=== PATIENT | male | born 1980 | race Caucasian/White ===

== ENCOUNTER 2017-04-16 10:18 | Inpatient (IN) ==
--- NOTE | 2017-04-16 10:31 | Emergency Department Note ---
Disposition Clinical Impression: Cellulitis, Rash, Transaminitis, Hyperbilirubinemia, IVDU (intravenous drug user) Disposition: Admitted As Inpatient Condition: Good General Adult HPI - General Chief complaint: ED Skin/Abscess/Foreign Body Stated complaint: rash all over/ abscess right hand Time Seen by Provider: 04/16/17 10:25 Source: patient, family Limitations: no limitations - History of Present Illness Pain Scale: 10 - Related Data Home Medications Medication Instructions Recorded Confirmed No Known Home Drugs 04/16/17 04/16/17 Allergies Allergy/AdvReac Type Severity Reaction Status Date / Time No Known Allergies Allergy Verified 04/16/17 10:19 Past Medical History - Past Medical History Medical history: Reports: no medical history, hepatitis Surgical history: Reports: no surgical history Psychiatric history: Reports: no psych history - Social History Smoking Status: Current every day smoker Smokeless Tobacco Status: No Alcohol use: Reports: occasionally Drug use: Reports: cocaine, marijuana, IVDU Physical Exam - General Limitations: no limitations General appearance: alert, in no apparent distress Course Vital Signs Temperature 98.0 F 04/16/17 10:20 Pulse Rate 92 04/16/17 10:20 Respiratory Rate 16 04/16/17 10:20 Blood Pressure 140/92 04/16/17 10:20 O2 Sat by Pulse Oximetry 99 04/16/17 10:20 Temperature 98.6 F 04/16/17 14:01 Pulse Rate 71 04/16/17 14:01 Respiratory Rate 16 04/16/17 14:01 Blood Pressure 117/74 04/16/17 14:01 O2 Sat by Pulse Oximetry 94 04/16/17 15:00 Oxygen Delivery Oxygen Delivery Room Air Medical Decision Making - Lab Data Result diagrams: 04/16/17 10:52 04/16/17 10:52 Lab Results 04/16/17 04/16/17 04/16/17 Range/Units 10:52 10:52 10:52 WBC 8.2 (4.3-11.1) K/mcL RBC 5.32 (4.19-5.50) M/mcL Hgb 15.1 (12.9-16.9) g/dL Hct 44.6 (37.5-50.1) % MCV 83.8 (83.0-100.0) fL MCH 28.4 (28.0-33.3) pg MCHC 33.9 (31.6-35.5) g/dL RDW 15.5 H (11.5-14.5) % Plt Count 177 (140-400) K/mcL MPV 10.5 (9.4-12.4) fL Immature Gran % 0.2 (0-4) % Seg Neutrophils % 74.0 % Lymphocytes % 16.2 % Monocytes % 8.3 % Eosinophils % 0.9 % Basophils % 0.4 % Neutrophils # 6.1 (1.6-8.9) K/mcL Lymphocytes # 1.3 (0.6-4.6) K/mcL Monocytes # 0.7 (0.0-1.3) K/mcL Eosinophils # 0.1 (0.0-0.6) K/mcL Basophils # 0.0 (0.0-0.2) K/mcL ESR 67 H (0-10) mm/hr Sodium 135 L (136-145) mEq/L Potassium 3.3 L (3.5-4.5) mEq/L Chloride 102 (98-109) mEq/L Carbon Dioxide 23 (19-29) mEq/L BUN 12 (8-26) mg/dL Creatinine 0.87 (0.72-1.25) mg/dL Est GFR ( Amer) > 60 (> 60) Est GFR (Non-Af Amer) > 60 (> 60) BUN/Creatinine Ratio 14 (6-26) Glucose 105 H (70-99) mg/dL Calculated Osmolality 280 (280-300) Calcium 8.8 (8.6-10.8) mg/dL Total Bilirubin 3.0 H (0.2-1.2) mg/dL AST 898 H (5-34) Units/L ALT 579 H (0-55) Units/L Alkaline Phosphatase 180 H (38-126) Units/L C-Reactive Protein 49 H (Less than 5) mg/L Serum Total Protein 7.9 (6.0-8.3) g/dL Albumin 3.4 L (3.5-5.0) g/dL Globulin 4.5 H (2.4-3.5) g/dL Albumin/Globulin Ratio 0.8 L (1.1-2.2) Attestation Statement - Attestation Attestation: I examined this patient and my medical decision-making was reviewed with the HUMAN RESOURCES PROJECT MANAGER/PA/Advanced Practice Nurse/Resident Physician. I agree with the documented findings, disposition and treatment plan as described except to the extent set forth below. [id number] time provided Patient presents with right hand swelling. Clinically he has cellulitis to the dorsum of his right hand. He is an active IV drug user but denies injecting in the affected area recently. Admits to systemic symptoms including chills. No fevers. No previous past medical history including diabetes
[2017-04-16] MEDS ORDERED: Vancomycin 1,000 MG in D5% in Water 250 ML IVPB ONE (10:32)
[2017-04-16] MEDS ORDERED: Ampicillin/Sulbactam 3,000 MG in 0.9 % Sodium Chloride Mini Bag 100 ML IVPB ONE (10:33)
--- NOTE | 2017-04-16 10:38 | Emergency Department Note ---
Disposition Clinical Impression: Rash, Transaminitis, Hyperbilirubinemia, IVDU (intravenous drug user) Cellulitis Qualifiers: Site of cellulitis: extremity Site of cellulitis of extremity: upper extremity Laterality: right Qualified Code(s): L03.113 - Cellulitis of right upper limb Disposition: Admitted As Inpatient Condition: Good Forms: ED Satisfaction Letter Skin/Abscess/FB HPI Chief complaint: ED Skin/Abscess/Foreign Body Stated complaint: rash all over/ abscess right hand Time Seen by Provider: 04/16/17 10:25 Source: patient, family Limitations: no limitations Nursing Notes Reviewed: Yes Vital Signs Reviewed: Yes HPI Narrative: 36-year-old male with a history of hepatitis C and IV drug abuse presents to the emergency department with a chief complaint of swollen, painful right hand. He also reports a rash on his forearms and shins. Reports over the last 3-4 days his right hand has become very swollen and painful. He states it hurts to flex and extend his fingers. He reports most of the swelling on the top of his hand. He does not recall injecting drugs in that hand and states he usually uses his left arm. He had chills and sweats all last night. He also reports "bites" on the back of his forearms and his shins that have been there for 2-3 days periods he states they are not painful and do not itch. Denies any headache, abdominal pain or vomiting. He reports some nausea. Denies any numbness or weakness in the extremities. He is not drinking, using the bathroom normally. Home Medications Medication Instructions Recorded Confirmed No Known Home Drugs 04/16/17 04/16/17 Allergies Allergy/AdvReac Type Severity Reaction Status Date / Time No Known Allergies Allergy Verified 04/16/17 10:19 All systems ED: reviewed and negative except as stated. Constitutional: Reports: chills. Denies: fever Respiratory: Denies: cough Gastrointestinal: Reports: nausea. Denies: abdominal pain, vomiting Musculoskeletal: Denies: neck pain Integumentary: Reports: rash Neurological: Denies: headache, weakness, numbness Past Medical History - Past Medical History Medical history: Reports: no medical history, hepatitis Surgical history: Reports: no surgical history Psychiatric history: Reports: no psych history - Social History Smoking Status: Current every day smoker Smokeless Tobacco Status: No Alcohol use: Reports: occasionally Drug use: Reports: cocaine, marijuana, IVDU Physical Exam General: Appears well, alert and oriented x 3 Cardiovascular: Regular rate and rhythm. S1, S2. No murmurs, rubs or gallops. Respiratory: Breath sounds clear bilaterally. Abdomen: Soft, nontender. No guarding, rebound or rigidity. Eyes: Conjunctivae clear without any drainage or discharge HENT: No oral mucosal lesions. Moist mucous membranes. There is a small amount of white plaque on the tongue but no other lesions in the mucosa. Neuro: Cranial nerves intact. No motor or sensory deficit. Musculoskeletal: No joint tenderness or swelling Skin: He has multiple small, less than 1 cm, circular, erythematous, blanching, slightly raised lesions on the back of the forearms and anterior shins. There are few areas do have a scab in the middle of the lesion. Negative Nikolsky's. The entire right hand on the dorsal aspect is erythematous to the level of the wrist joint to the MCP. There is also some erythema over the posterior thenar eminence. There is a prominence of the palmar side thenar eminence without erythema. There is a few areas of scabbing on the back of the hand as well. Vascular: Strong radial pulses bilaterally. Normal capillary refill distal Neuro: He is able to flex and extend his fingers but limited by pain. Sensation is intact. Psych: Appropriate - General Limitations: no limitations General appearance: alert, in no apparent distress Course Course Narrative: Presents with diffuse cellulitis on the back of his right hand. History of IV drug use and reported hepatitis C. No leukocytosis, no fever or tachycardia. He does have a elevation in his ESR and CRP. X-ray shows no osseous breakdown. It does show some soft tissue swelling consistent with a cellulitis. He was given IV Unasyn to cover streptococcus and vancomycin to cover MRSA. He also has a quite elevated AST, ALT and bilirubin. He admits to hepatitis C and this appears to be progressed from previous labs drawn here. Also discussed this with the hospitalist and these will need to be trended. I discussed with the on-call orthopedic surgeon, Dr. Jones who is comfortable evaluating the patient cellulitis and will see tomorrow as consult. Vital Signs Temperature 98.0 F 04/16/17 10:20 Pulse Rate 92 04/16/17 10:20 Respiratory Rate 16 04/16/17 10:20 Blood Pressure 140/92 04/16/17 10:20 O2 Sat by Pulse Oximetry 99 04/16/17 10:20 Temperature 98.0 F 04/16/17 10:20 Pulse Rate 91 04/16/17 11:03 Respiratory Rate 16 04/16/17 11:03 Blood Pressure 135/96 04/16/17 11:03 O2 Sat by Pulse Oximetry 99 04/16/17 11:03 Oxygen Delivery Oxygen Delivery Room Air Skin/Abscess/Foreign Body - Lab Data Result diagrams: 04/16/17 10:52 04/16/17 10:52 Lab Results 04/16/17 04/16/17 04/16/17 Range/Units 10:52 10:52 10:52 WBC 8.2 (4.3-11.1) K/mcL RBC 5.32 (4.19-5.50) M/mcL Hgb 15.1 (12.9-16.9) g/dL Hct 44.6 (37.5-50.1) % MCV 83.8 (83.0-100.0) fL MCH 28.4 (28.0-33.3) pg MCHC 33.9 (31.6-35.5) g/dL RDW 15.5 H (11.5-14.5) % Plt Count 177 (140-400) K/mcL MPV 10.5 (9.4-12.4) fL Immature Gran % 0.2 (0-4) % Seg Neutrophils % 74.0 % Lymphocytes % 16.2 % Monocytes % 8.3 % Eosinophils % 0.9 % Basophils % 0.4 % Neutrophils # 6.1 (1.6-8.9) K/mcL Lymphocytes # 1.3 (0.6-4.6) K/mcL Monocytes # 0.7 (0.0-1.3) K/mcL Eosinophils # 0.1 (0.0-0.6) K/mcL Basophils # 0.0 (0.0-0.2) K/mcL ESR 67 H (0-10) mm/hr Sodium 135 L (136-145) mEq/L Potassium 3.3 L (3.5-4.5) mEq/L Chloride 102 (98-109) mEq/L Carbon Dioxide 23 (19-29) mEq/L BUN 12 (8-26) mg/dL Creatinine 0.87 (0.72-1.25) mg/dL Est GFR ( Amer) > 60 (> 60) Est GFR (Non-Af Amer) > 60 (> 60) BUN/Creatinine Ratio 14 (6-26) Glucose 105 H (70-99) mg/dL Calculated Osmolality 280 (280-300) Calcium 8.8 (8.6-10.8) mg/dL Total Bilirubin 3.0 H (0.2-1.2) mg/dL AST 898 H (5-34) Units/L ALT 579 H (0-55) Units/L Alkaline Phosphatase 180 H (38-126) Units/L C-Reactive Protein 49 H (Less than 5) mg/L Serum Total Protein 7.9 (6.0-8.3) g/dL Albumin 3.4 L (3.5-5.0) g/dL Globulin 4.5 H (2.4-3.5) g/dL Albumin/Globulin Ratio 0.8 L (1.1-2.2)
[2017-04-16 11:01] LABS: Basophils % 0.4 %; Eosinophils # 0.1 K/mcL (0.0-0.6); Eosinophils % 0.9 %; Hematocrit 44.6 % (37.5-50.1); Hemoglobin 15.1 g/dL (12.9-16.9); Immature Granulocytes % 0.2 % (0-4); Lymphocytes # 1.3 K/mcL (0.6-4.6); Lymphocytes % 16.2 %; Mean Corpuscular HGB Conc 33.9 g/dL (31.6-35.5); Mean Corpuscular Hemoglobin 28.4 pg (28.0-33.3); Mean Corpuscular Volume 83.8 fL (83.0-100.0); Mean Platelet Volume 10.5 fL (9.4-12.4); Monocytes # 0.7 K/mcL (0.0-1.3); Monocytes % 8.3 %; Neutrophils # 6.1 K/mcL (1.6-8.9); Platelet Count 177 K/mcL (140-400); Red Blood Count 5.32 M/mcL (4.19-5.50); Red Cell Distribution Width 15.5 % (11.5-14.5)
[2017-04-16] MEDS ORDERED: Ibuprofen 600 MG TABLET PO STA (11:06)
[2017-04-16 11:17] LABS: Alanine Aminotransferase 579 Units/L (0-55); Albumin 3.4 g/dL (3.5-5.0); Albumin/Globulin Ratio 0.8 (1.1-2.2); Alkaline Phosphatase 180 Units/L (38-126); Aspartate Amino Transferase 898 Units/L (5-34); BUN/Creatinine Ratio 14 (6-26); Blood Urea Nitrogen 12 mg/dL (8-26); C-Reactive Protein 49 mg/L (Less than 5); Calcium 8.8 mg/dL (8.6-10.8); Carbon Dioxide 23 mEq/L (19-29); Chloride 102 mEq/L (98-109); Globulin 4.5 g/dL (2.4-3.5); Glucose 105 mg/dL (70-99); Osmolality,Calculated 280 (280-300); Potassium 3.3 mEq/L (3.5-4.5); Sodium 135 mEq/L (136-145); Total Protein 7.9 g/dL (6.0-8.3); eGFR For African Americans > 60 (> 60); eGFR For Non-African Americans > 60 (> 60)
[2017-04-16] MEDS ORDERED: Ibuprofen 600 MG TABLET PO ONE (12:44)
[2017-04-16] MEDS ORDERED: 0.9 % Sodium Chloride 1,000 ML IVC ONE (12:44)
[2017-04-16] MEDS ORDERED: *HR* OxyCODONE/APAP 5/325 TABLET PO ONE (12:44)
[2017-04-16] MEDS ORDERED: Lido/Epi/Tetra Gel 2 ML SYRINGE TP ONE (12:44)
[2017-04-16] MEDS ORDERED: Td (TENIVAC) Vaccine 0.5 ML VIAL IM ONE (12:44)
[2017-04-16] MEDS ORDERED: Naloxone 0.4 MG/ML INJ IVP PRN (12:48)
[2017-04-16] MEDS ORDERED: Ondansetron ODT 4 MG TAB.RAPDIS SL PRN (12:48)
--- NOTE | 2017-04-16 13:12 | Internal Med History&Physical ---
<BeatrizStephan King - Last Filed: 04/16/17 15:13> Date of Encounter: 04/16/17 Time of Encounter: 12:30 Assessment and Plan (1) Cellulitis Current visit: Yes Status: Acute Assess: Mr. Huertas is a 36 year old male who presents from the ED with chief complaint of swollen right hand that is warm, erythematous, and edematous. The entire right hand on the dorsal aspect is erythematous to the level of the wrist joint to MCP. There is also some erythema present over the posterior thenar eminence. Right hand is most painful on examination in the area between the forefinger and thumb. Patient states that he is able to flex and extend fingers but this is very painful. He reports that his pain is currently a 10 on a scale of 0-10. Plan: Vancomycin ordered with pharmacy dosing for infection coverage Consult placed with Dr. Jones in ED to examine patient for possible surgical intervention Ibuprofen ordered for pain due to elevated liver enzymes Monitor patient for continued/increasing pain and/or compartment syndrome Blood cultures ordered in ED Wound culture to be ordered if rash or cellulitis becomes exudative Follow-up blood work ordered for 04/17/17 Monitor patient's vital signs Qualifiers: Site of cellulitis: extremity Site of cellulitis of extremity: upper extremity Laterality: right Qualified Code(s): L03.113 - Cellulitis of right upper limb (2) Rash Current visit: Yes Status: Acute Assess: Patient has rash present predominantly on left lower herrera area and right forearm. Patient states that the rash began 2-3 days ago and there is no itching associated with the rash. Rash is pinpoint in appearance and localized. There are also areas of scabbing on the right herrera with some erythema present around scabs. Patient cannot recall how scabs came to be. There are areas of scabbing present on the dorsal area of the right hand located between the uppermost knuckles. Patient states he does not recall what these scabs are from. Plan: Vancomycin ordered with pharmacy dosing for infection coverage Blood cultures ordered in ED Follow-up blood work ordered for 04/17/17 Monitor patient for continued or spreading rash/discomfort/itching/exudate Wound culture to be ordered if rash or cellulitis becomes exudative Monitor patient's vital signs (3) IVDU (intravenous drug user) Current visit: Yes Status: Acute Assess: Patient presents with a history of drug abuse including cocaine, marijuana, and IV heroin. Patient also states that he abuses prescription pain medications that he receives for pain diagnosis. This includes Percocet, hydrocodone, and others. Patient states that his last injection of heroin was two weeks ago. Patient also reports that he had cellulitis of the left arm 2-3 years ago from injecting heroin. Hep panel ordered. Plan: Consult to Social Work ordered for assessment and possible placement for rehabilitation services Urine toxicology screen ordered HIV test ordered Hep panel (A,B,C) ordered Patient educated on the dangers of IV drug use, including possible diseases resulting from use (4) DVT prophylaxis Current visit: Yes Status: Acute Assess: Patient to receive DVT prophylaxis per protocol due to inpatient status and current diagnosis of cellulitis. Plan: Heparin 5,000 units SQ Q12 ordered Will monitor patient in the event surgical intervention is required on right hand and administer vitamin K if needed Internal Medicine - H&P: HPI Admitted From: Emergency Dept Plans for Post Hospital Care: Home History of present illness: Mr. Huertas is a 36 year old male who presents from the ED with chief complaint of swollen right hand that is warm, erythematous, and edematous. The entire right hand on the dorsal aspect is erythematous to the level of the wrist joint to MCP. There is also some erythema present over the posterior thenar eminence. Patient also has rash present predominantly on left lower herrera area and right forearm. Patient states that the rash began 2-3 days ago and there is no itching associated with the rash. Rash is pinpoint in appearance and localized. There are also areas of scabbing on the right herrera with some erythema present around scabs. Patient cannot recall how scabs came to be. There are areas of scabbing present on the dorsal area of the right hand located between the uppermost knuckles. Patient states he does not recall what these scabs are from. Right hand is most painful on examination in the area between the forefinger and thumb. Patient states that he is able to flex and extend fingers but this is very painful. He reports that his pain is currently a 10 on a scale of 0-10. Mr. Huertas states that he is a drug user and reports that he uses cocaine, marijuana, and IV heroin. He states that the last time he injected heroin was 2 weeks ago. Patient denies using other newer street drugs such as flakka. Patient also reports that he abuses prescription pain medications on occasion that he receives for pain diagnoses. He states these consist of Percocet, hydrocodone, and others. Mr. Huertas is to be admitted as inpatient status with consult placed in the ED for Dr. Jones to examine the patient's hand to assess for possible need for surgical intervention. Patient to receive IV Vancomycin with pharmacy dosing for infection coverage. A consult for Social Work has also been placed to assess need for rehabilitation services for this patient. Toxicology screen, HIV testing, and Hep A testing orders have been placed as well. Past Med Surg Social Fam HX - Past Medical History Medical history: no medical history, hepatitis Psychiatric history: no psych history - Past Surgical History Surgical History: orthopedic, other (Patient reports having 8 surgeries on left knee with ACL replacement 3x.) - Social History Smoking Status: Current every day smoker (Patient reports smoking 1 PPD) Smokeless Tobacco Status: No Alcohol use: occasionally Drug use: cocaine, marijuana, IVDU, prescription drug abuse (Patient reports taking Percocet and other prescription drugs.), other (Heroin) Current living situation: Home - Independent Activity Level: Independent ambulation Recent Out of Country Travel Within the Last 8 Weeks: No Exposure or Possible Exposure to Illness During Travel: No - Family History Father Race: Family Member Ethnicity: Non- Living Status: Still Living Hx Family Cardiac Disorders: Yes (HTN) Mother Race: Family Member Ethnicity: Non- Living Status: Still Living Hx Family Cancer: Yes (Breast) Brother Race: Family Member Ethnicity: Non- Living Status: Still Living Hx Family Medical Disorders: No Sister Race: Family Member Ethnicity: Non- Living Status: Still Living Hx Family Medical Disorders: No Internal Medicine - H&P: Meds No Known Home Drugs 04/16/17 [History] Allergies No Known Allergies Allergy (Verified 04/16/17 10:19) All Systems PM: A 10-system review of systems was performed and is negative for pertinent findings except as documented above in the HPI. - Constitutional Constitutional: fatigue, weakness - EENT Eyes: no change in vision, no discharge, no pain, no photophobia Ears: no ear discharge, no ear pain, no tinnitus Nose, mouth and throat: no dysphagia, no nasal discharge, no neck pain, no sore throat - Breasts Breasts: as per HPI - Cardiovascular Cardiovascular ROS IM: no chest pain, no diaphoresis, no dyspnea, no lightheadedness, no palpitations, no syncope - Respiratory Respiratory: no cough, no dyspnea, no wheezing, no excessive phlegm production - Gastrointestinal Gastrointestinal: nausea - Genitourinary Genitourinary ROS male: as per HPI - Musculoskeletal Musculoskeletal ROS IM: as per HPI Additional comments: Patient reports pain and tenderness in the right hand to the level of the wrist joint to the MCP. Patient states this began 2-3 days ago. - Integumentary Integumentary IM: as per HPI, erythema, rash Additional comments: Patient reports a rash on the lower left leg and lower right arm that extends to the elbow. Patient states this began 2-3 days ago. Patient states that the rash is non-itching. - Neurological Neurological ROS: headache(s) (Patient reports headache over the past 48 hours.) , weakness (Patient reports generalized feeling of weakness and fatigue over the past 2-3 days.) - Psychiatric Psychiatric: as per HPI - Endocrine Endocrine IM: fatigue (Patient reports generalized feeling of weakness and fatigue over the past 2-3 days.) - Hematologic/Lymphatic Hematologic/Lymphatic: no easy bruising - Allergic/Immunologic Allergic/Immunologic: as per HPI - Constitutional Vitals: Temp Pulse Resp BP Pulse Ox 98.0 F 75 16 125/81 99 04/16/17 10:20 04/16/17 12:37 04/16/17 12:37 04/16/17 12:37 04/16/17 12:37 General appearance: Present: cooperative, A&O X 3, no acute distress, answers questions appropriately - Head Head exam: Present: atraumatic, normocephalic - Eye Eye exam: Present: PERRL, conjuntiva pink, sclera anicteric Pupils: Present: PERRL - ENT ENT exam: Present: normal exam, normal external ear exam - Neck Neck exam general surgery: Present: normal inspection, supple, trachea midline - Respiratory Respiratory exam: Present: CTAB. Absent: accessory muscle use, rales, rhonchi, wheezes - Cardiovascular Cardiovascular exam: Present: RRR, +S1, +S2. Absent: diastolic murmur, gallop, rubs, systolic murmur - GI/Abdominal GI/Abdominal exam: Present: normal bowel sounds, soft, no peritoneal signs. Absent: distended, tenderness - Rectal Rectal exam: Present: deferred - Extremities Exam Extremities exam: Present: warm, radial pulses palpable and symetrical. Absent : calf tenderness, cyanotic, pedal edema Additional comments: Patient has rash present predominantly on left lower herrera area and right forearm. Patient states that the rash began 2-3 days ago and there is no itching associated with the rash. There are also areas of scabbing on the right herrera with some erythema present around scabs. Patient cannot recall how scabs came to be. Patient's right hand is warm, erythematous, and swollen to the level of the wrist joint to the MCP. There are areas of scabbing present on the dorsal area of the right hand located between the uppermost knuckles. Patient states he does not recall what these scabs are from. Right hand is most painful on examination in the area between the forefinger and thumb. - Back Exam Back exam: Present: normal inspection - Neurological Exam Neurological exam: Present: CN II-XII intact, oriented X3, no focal deficits. Absent: pronater drift, facial droop, speech deficit - Psychiatric Psychiatric exam: Present: normal affect, normal mood - Skin Skin exam: Present: dry, intact Internal Med - H&P Results - Labs CBC & Chem 7: 04/16/17 10:52 04/16/17 10:52 <Sarkis Hatch - Last Filed: 04/16/17 16:16> Date of Encounter: 04/16/17 Internal Medicine - H&P: HPI History of present illness: Mr. Huertas is a 36 year old male All Systems PM: A 10-system review of systems was performed and is negative for pertinent findings except as documented above in the HPI. - Constitutional Vitals: Temp Pulse Resp BP Pulse Ox 98.6 F 71 16 117/74 94 04/16/17 14:01 04/16/17 14:01 04/16/17 14:01 04/16/17 14:01 04/16/17 15:00 Internal Med - H&P Results - Labs CBC & Chem 7: 04/16/17 10:52 04/16/17 10:52 - Attending Attestation I examined this patient and my medical decision-making was reviewed with the CAREER PLACEMENT SPECIALIST/PA/Advanced Practice Nurse/Resident Physician. I agree with the documented findings, disposition and treatment plan as described except to the extent set forth below. Briefly, 36 yo CM with history of IVDA presented due to right hand swelling and redness. On exam, erythema and edema present over the right hand with tenderness to palpation. No exudates present. CTAB. Labs reviewed. X-ray hand with soft tissue swelling. 1. Right hand cellulitis with possible tenosynovitis/abscess: Admit to inpatient status. High risk due to possible need for surgical intervention. Expected to stay at least 2 midnights. IV abx. Pain control. Monitor erythema progression closely. If does not improve or worsens, may need surgery to prevent loss of limb. 2. IV drug abuse - Counselled regarding cessation. Check HIV. 3. Transaminitis - Pt. has history of Hep B & C. Will check Hep A titres. Monitor LFTs. GERALDO Gaspar
[2017-04-16] MEDS ORDERED: Ibuprofen 400 MG TABLET PO PRN (14:03)
[2017-04-16] MEDS: *HR* Heparin 5,000 UNIT/ML VIAL SQ SCH (17:41)
[2017-04-16] MEDS: Nicotine 14 MG PATCH.TD24 TD SCH (17:41)
[2017-04-16] MEDS: 0.9 % Sodium Chloride 1,000 ML IVC SCH (19:00)
[2017-04-16] MEDS: Ketorolac 30 MG/ML VIAL IVP PRN (21:34)
[2017-04-16] MEDS: Famotidine 20 MG TABLET PO SCH (21:35)
[2017-04-16] MEDS: Vancomycin 1,250 MG in D5% in Water 250 ML IVPB SCH (21:35)
[2017-04-16] MEDS ORDERED: *HR* Heparin 5,000 UNIT/ML VIAL SQ SCH (22:00)
[2017-04-16 22:25] LABS: Amphetamine Screen,Urine Negative ng/mL (Cutoff=1000); Barbiturate Screen,Urine Negative ng/mL (Cutoff=200); Benzodiazepines Screen,Urine Negative ng/mL (Cutoff=200); Cannabinoid Screen,Urine Positive ng/mL (Cutoff = 50); Cocaine Screen,Urine Positive ng/mL (Cutoff= 300); Opiate Screen,Urine Positive ng/mL (Cutoff=300); Phencyclidine Screen,Urine Negative ng/mL (Cutoff=25)
[2017-04-17] MEDS: 0.9 % Sodium Chloride 1,000 ML IVC SCH ×2 (04:38→19:08)
[2017-04-17 05:19] LABS: Basophils % 0.5 %; Eosinophils # 0.1 K/mcL (0.0-0.6); Hematocrit 39.3 % (37.5-50.1); Immature Granulocytes % 0.3 % (0-4); Lymphocytes % 22.4 %; Mean Corpuscular HGB Conc 34.4 g/dL (31.6-35.5); Mean Corpuscular Volume 84.3 fL (83.0-100.0); Mean Platelet Volume 11.2 fL (9.4-12.4); Monocytes # 0.7 K/mcL (0.0-1.3); Monocytes % 7.9 %; Neutrophils # 5.9 K/mcL (1.6-8.9); Platelet Count 159 K/mcL (140-400); Red Blood Count 4.66 M/mcL (4.19-5.50); Red Cell Distribution Width 15.5 % (11.5-14.5); Segmented Neutrophils % 67.9 %
[2017-04-17 05:32] LABS: Hemoglobin 13.5 g/dL (12.9-16.9)
[2017-04-17 05:38] LABS: Alanine Aminotransferase 406 Units/L (0-55); Albumin 2.9 g/dL (3.5-5.0); Albumin/Globulin Ratio 0.7 (1.1-2.2); Alkaline Phosphatase 155 Units/L (38-126); Aspartate Amino Transferase 530 Units/L (5-34); BUN/Creatinine Ratio 12 (6-26); Bilirubin,Total 1.9 mg/dL (0.2-1.2); Blood Urea Nitrogen 10 mg/dL (8-26); Calcium 8.3 mg/dL (8.6-10.8); Carbon Dioxide 22 mEq/L (19-29); Chloride 107 mEq/L (98-109); Globulin 4.2 g/dL (2.4-3.5); Glucose 103 mg/dL (70-99); Magnesium 1.6 mg/dL (1.6-2.6); Osmolality,Calculated 283 (280-300); Potassium 3.2 mEq/L (3.5-4.5); Sodium 137 mEq/L (136-145); Total Protein 7.1 g/dL (6.0-8.3); eGFR For African Americans > 60 (> 60); eGFR For Non-African Americans > 60 (> 60)
[2017-04-17] MEDS ORDERED: *HR* Enoxaparin 40 MG/0.4 ML SYRINGE SQ SCH (06:00)
[2017-04-17] MEDS: Ketorolac 30 MG/ML VIAL IVP PRN ×3 (06:10→19:08)
[2017-04-17] MEDS: *HR* Heparin 5,000 UNIT/ML VIAL SQ SCH ×2 (06:10→17:37)
--- NOTE | 2017-04-17 06:44 | Orthopedic Consult Note ---
Date of Encounter: 04/17/17 Time of Encounter: 06:43 History of Present Illness HPI: Mr. Huertas is a 36 year old male with a history of IV drug abuse history of right hand swelling and pain Physical exam Right hand iV proximal to wrist Minimal swelling dorsal Minimal erythema Pain-free motion Resolving cellulitis continuing IV antibiotics and discharged on by mouth antibiotics Past Med Surg Social Fam HX - Past Medical History Medical history: no medical history, hepatitis Psychiatric history: no psych history - Past Surgical History Surgical History: no surgical history - Social History Smoking Status: Current every day smoker Packs per day: 1 Smokeless Tobacco Status: No Alcohol use: occasionally Drug use: cocaine, marijuana, IVDU - Family History Father Race: Family Member Ethnicity: Non- Living Status: Still Living Hx Family Cardiac Disorders: Yes (HTN) Mother Race: Family Member Ethnicity: Non- Living Status: Still Living Hx Family Cancer: Yes (Breast) Brother Race: Family Member Ethnicity: Non- Living Status: Still Living Hx Family Medical Disorders: No Sister Race: Family Member Ethnicity: Non- Living Status: Still Living Hx Family Medical Disorders: No Medications and Allergies No Known Home Drugs 04/16/17 [History] Allergies No Known Allergies Allergy (Verified 04/16/17 10:19) All Systems Reviewed: A 10-system review of systems was performed and is negative for pertinent findings except as documented above in the HPI. Physical Exam - Constitutional Vitals: Temp Pulse Resp BP Pulse Ox 98.2 F 60 16 133/81 98 04/17/17 04:13 04/17/17 04:13 04/17/17 04:13 04/17/17 04:13 04/17/17 04:13 Results - Labs Result Diagrams: 04/17/17 04:11 04/17/17 04:11 Labs: Abnormal lab results RDW 15.5 % (11.5-14.5) H 04/17/17 04:11 ESR 67 mm/hr (0-10) H 04/16/17 10:52 Potassium 3.2 mEq/L (3.5-4.5) L 04/17/17 04:11 Glucose 103 mg/dL (70-99) H 04/17/17 04:11 Calcium 8.3 mg/dL (8.6-10.8) L 04/17/17 04:11 Total Bilirubin 1.9 mg/dL (0.2-1.2) H 04/17/17 04:11 AST 530 Units/L (5-34) H 04/17/17 04:11 ALT 406 Units/L (0-55) H 04/17/17 04:11 Alkaline Phosphatase 155 Units/L (38-126) H 04/17/17 04:11 C-Reactive Protein 49 mg/L (Less than 5) H 04/16/17 10:52 Albumin 2.9 g/dL (3.5-5.0) L 04/17/17 04:11 Globulin 4.2 g/dL (2.4-3.5) H 04/17/17 04:11 Albumin/Globulin Ratio 0.7 (1.1-2.2) L 04/17/17 04:11 Urine Opiates Screen Positive ng/mL (Iprfru=428) H 04/16/17 20:52 Urine Cocaine Screen Positive ng/mL (Cutoff= 300) H 04/16/17 20:52 U Marijuana (THC) Screen Positive ng/mL (Cutoff = 50) H 04/16/17 20:52 H & H 04/17/17 Range/Units 04:11 Hgb 13.5 D (12.9-16.9) g/dL Hct 39.3 (37.5-50.1) % All other labs normal. Consult Discharge Plan - Plan Referrals: NO,PCP [Primary Care Provider] -
[2017-04-17] MEDS: Nicotine 14 MG PATCH.TD24 TD SCH (08:24)
[2017-04-17] MEDS: Famotidine 20 MG TABLET PO SCH ×2 (08:24→22:15)
[2017-04-17] MEDS: Vancomycin 1,250 MG in D5% in Water 250 ML IVPB SCH (08:24)
[2017-04-17] MEDS ORDERED: Nicotine 14 MG PATCH.TD24 TD SCH (09:00)
--- NOTE | 2017-04-17 18:25 | Internal Med Progress Note ---
Date of Encounter: 04/17/17 Time of Encounter: 14:00 - Assessment and plan (1) Cellulitis Current Visit: Yes Status: Acute Assessment and plan: Right upper hand cellulitis. Secondary to IV drug use. Continue IV vancomycin. Pending blood cultures results. Clinically slowly improving. Appreciate orthopedic input. Qualifiers: Site of cellulitis: extremity Site of cellulitis of extremity: upper extremity Laterality: right Qualified Code(s): L03.113 - Cellulitis of right upper limb (2) Rash Current Visit: Yes Status: Acute Assessment and plan: Likely secondary to strep forunculitis. Improving slowly. Continue IV vancomycin. (3) Transaminitis Current Visit: Yes Status: Acute Assessment and plan: Elevated LFTs. Check HIV. Check hepatitis profile. Close monitor. (4) IVDU (intravenous drug user) Current Visit: Yes Status: Chronic (5) Tobacco abuse Current Visit: Yes Status: Chronic Assessment and plan: Nicotine patch. - Subjective Interval history: Patient reports bilateral upper extremity rash is fading area he is right hand swelling and erythema is also improving. - Constitutional Vitals: Temp Pulse Resp BP Pulse Ox 98.8 F 67 16 122/63 95 04/17/17 14:54 04/17/17 14:54 04/17/17 14:54 04/17/17 14:54 04/17/17 14:54 General appearance: Present: cooperative, A&O X 3, pleasant, no acute distress, answers questions appropriately - Respiratory Respiratory exam: Present: CTAB - Cardiovascular Cardiovascular exam: Present: RRR - GI/Abdominal GI/Abdominal exam: Present: normal bowel sounds, soft. Absent: distended, tenderness - Extremities Exam Additional comments: Right hand: There is mild swelling and waiting erythema at the dorsal area. Good range of motion. - Back Exam Back exam: Absent: CVA tenderness (L), CVA tenderness (R) - Neurological Exam Neurological exam: Present: alert, oriented X3, no focal deficits, strengths equal and symetr throughout. Absent: facial droop, speech deficit - Skin Skin exam: Present: rash (There are multiple small papular lesions on the lateral areas of his forearms, fading erythema at the base of the lesions.) Internal Medicine: Result - Labs CBC & Chem 7: 04/17/17 04:11 04/17/17 04:11 Labs: Short CBC 04/17/17 Range/Units 04:11 WBC 8.7 (4.3-11.1) K/mcL Hgb 13.5 D (12.9-16.9) g/dL Hct 39.3 (37.5-50.1) % Plt Count 159 (140-400) K/mcL Neutrophils # 5.9 (1.6-8.9) K/mcL BMP 04/17/17 04:11 Sodium 137 Potassium 3.2 L Chloride 107 Carbon Dioxide 22 BUN 10 Creatinine 0.83 Glucose 103 H Calcium 8.3 L Liver Function 04/17/17 Range/Units 04:11 Total Bilirubin 1.9 H (0.2-1.2) mg/dL AST 530 H (5-34) Units/L ALT 406 H (0-55) Units/L Alkaline Phosphatase 155 H (38-126) Units/L Albumin 2.9 L (3.5-5.0) g/dL Consult Discharge Plan - Plan Referrals: NO,PCP [Primary Care Provider] -
[2017-04-17] MEDS: Vancomycin 1,500 MG in D5% in Water 250 ML IVPB SCH (22:01)
[2017-04-18] MEDS: *HR* Heparin 5,000 UNIT/ML VIAL SQ SCH (05:27)
[2017-04-18] MEDS: Ketorolac 30 MG/ML VIAL IVP PRN (05:28)
[2017-04-18 06:17] LABS: Alanine Aminotransferase 348 Units/L (0-55); Albumin 2.8 g/dL (3.5-5.0); Albumin/Globulin Ratio 0.7 (1.1-2.2); Alkaline Phosphatase 148 Units/L (38-126); Aspartate Amino Transferase 417 Units/L (5-34); BUN/Creatinine Ratio 7 (6-26); Bilirubin,Direct 1.1 mg/dL (0.0-0.5); Bilirubin,Indirect 0.6 mg/dL (0.0-1.2); Bilirubin,Total 1.7 mg/dL (0.2-1.2); Blood Urea Nitrogen 7 mg/dL (8-26); Calcium 7.9 mg/dL (8.6-10.8); Carbon Dioxide 18 mEq/L (19-29); Chloride 113 mEq/L (98-109); Globulin 3.9 g/dL (2.4-3.5); Glucose 146 mg/dL (70-99); Osmolality,Calculated 289 (280-300); Potassium 3.2 mEq/L (3.5-4.5); Sodium 139 mEq/L (136-145); Total Protein 6.7 g/dL (6.0-8.3); eGFR For African Americans > 60 (> 60); eGFR For Non-African Americans > 60 (> 60)
[2017-04-18 07:41] VITALS: BP 132/81
[2017-04-18] MEDS: Famotidine 20 MG TABLET PO SCH (07:47)
[2017-04-18] MEDS: Nicotine 14 MG PATCH.TD24 TD SCH (07:47)
[2017-04-18] MEDS: 0.9 % Sodium Chloride 1,000 ML IVC SCH (09:38)
[2017-04-18] MEDS: Vancomycin 1,500 MG in D5% in Water 250 ML IVPB SCH (09:38)
[2017-04-18] MEDS ORDERED: Aminoglycoside Consult 1 EACH MC ONE (10:34)
[2017-04-18 10:48] LABS: Hepatitis A Antibody IgM Nonreactive (Nonreactive)
[2017-04-18 10:53] LABS: Hepatitis B Core IgM Reactive (Nonreactive); Hepatitis B Surface Antigen Reactive (Nonreactive); Hepatitis C Virus Antibody Reactive (Nonreactive)
--- NOTE | 2017-04-18 19:44 | Event Note ---
Date of Encounter: 04/18/17 Time of Encounter: 19:42 36 yo M admitted with diagnosis of right hand cellulitis secondary to IVDA. he was started on IV vancomycin with slow improvement. blood cultures so far negative. this morning patient was very anxious and wanted to go home. He left AMA before I could see him. I sent prescriptions to his pharmacy for bactrim. he was advised to see his PCP as soon as possible.
== END 2017-04-18 10:35 | disposition left against medical advice (07) | DRG 383 ==
LOC: 3NENU 10:18 → EMEROO 10:18 → SUATTDRO 12:49 → 3BNU 13:23
PROVIDERS: ADMIT Internal Medicine Sleep Medicine; ATTEND Internal Medicine